=== PATIENT | male | born 1965 | race American Indian/Alaskan Native ===

== ENCOUNTER 2020-09-19 18:16 | Emergency (ER) | payer SELFPAY ==
[2020-09-19 18:31] VITALS: BP 138/93
[2020-09-19] MEDS ORDERED: oxyCODONE /ACETAMINOPHEN 5-325MG TAB PO PRN (18:36)
--- NOTE | 2020-09-19 18:37 | Event Note ---
ED Screening Note Date of service: 09/19/20 Time: 18:36 ED Screening Note: Pleasant 85-year-old male presents the emergency department chief complaint of right posterior ankle pain and swelling over the past day. He reports chronic knee pain but ankle pain is new. He is concerned he may have a clot. He denies any specific injuries. Pain is 9 of 10 severity. This initial assessment/diagnostic orders/clinical plan/treatment(s) is/are subject to change based on patients health status, clinical progression and re- assessment by fellow clinical providers in the ED. Further treatment and workup at subsequent clinical providers discretion. Patient/guardian urged not to elope from the ED as their condition may be serious if not clinically assessed and managed. Initial orders include: Right knee x-ray, right ankle x-ray, venous Doppler to rule out DVT.
[2020-09-19] MEDS ORDERED: ONDANSETRON 4 MG ODT TAB PO ONE (19:31)
[2020-09-19] MEDS ORDERED: IBUPROFEN 600 MG TAB PO ONE (19:31)
--- NOTE | 2020-09-19 19:48 | XRay Report ---
RIGHT KNEE 3 VIEWS INDICATION / CLINICAL INFORMATION: Right knee pain and swelling. COMPARISON: None available. FINDINGS: BONES and JOINT(S): No acute fracture or subluxation. There is mild tricompartmental osteoarthritis. A small joint effusion is present. SOFT TISSUES: No acute abnormality. There is mild popliteal atherosclerosis. ADDITIONAL FINDINGS: None. IMPRESSION: 1. No acute findings. 2. Mild osteoarthritis with additional findings as above. Signer Name: Brandan Masters MD Signed: 09/19/2020 7:44 PM Workstation Name: [id number]
--- NOTE | 2020-09-19 19:49 | XRay Report ---
RIGHT ANKLE 4 VIEWS INDICATION / CLINICAL INFORMATION: Right ankle pain and swelling. COMPARISON: None available. FINDINGS: BONES and JOINT(S): No acute fracture or subluxation. No significant arthritis. SOFT TISSUES: Mild edema is noted anteriorly and laterally. ADDITIONAL FINDINGS: None. IMPRESSION: Mild right ankle edema without an acute osseous abnormality. Signer Name: Brandan Masters MD Signed: 09/19/2020 7:44 PM Workstation Name: [id number]
--- NOTE | 2020-09-19 20:08 | Emergency Department Report ---
ED Extremity Problem HPI - General Chief complaint: Extremity Injury, Lower Stated complaint: R ANKLE PAIN Source: patient Mode of arrival: Ambulatory Limitations: No Limitations - History of Present Illness Initial comments: Patient is a 55-year-old -[place] male with no past medical history except chronic osteoarthritis who presents to the ED with complaint of acute o nset persistent nontraumatic right ankle pain and swelling that radiates to the posterior right lower leg with worsening right Achilles tendon pain for the last 2 days worse in the last 12 hours. Patient states that he is always on his feet at work and that about 6 hours ago the pain got worse and he decided come to the ED for evaluation. Patient denies dizziness, syncope, fall, heavy lifting, t raumatic injury, numbness and tingling or weakness of lower extremities bilaterally, headache, chest pain, shortness of breath, fever, chills, nausea and vomiting, back pain or hip pain and right knee pain. MD Complaint: extremity pain (Right ankle and lower leg pain), extremity swelling (Right ankle swelling and pain), joint paint (Right ankle pain) -: days(s) (2) Location: lower extremity (Posterior right Achilles tendon pain and lower leg pain; right ankle pain and swelling), other (Right ankle pain and swelling) History of Same: No -: Yes arthralgia (Right ankle pain and swelling) Radiation: proximal Severity scale (0 -10): 8 Quality: aching, sharp Consistency: constant Improves with: nothing Worsens with: weight bearing, walking, exertion, palpation Associated Symptoms: denies other symptoms, arthralgias (Right ankle pain and swelling). denies: chest pain, shortness of breath, fever, myalgias, rash, other - Related Data Previous Rx's Medication Instructions Recorded Last Taken Type HYDROcodone/APAP 5-325 [[place] 1 each PO Q6HR PRN #12 tablet 09/19/20 Unknown Rx 5/325] Ibuprofen [Motrin] 800 mg PO Q8HR PRN #30 tablet 09/19/20 Unknown Rx predniSONE [Deltasone] 60 mg PO QDAY #15 tab 09/19/20 Unknown Rx Allergies Allergy/AdvReac Type Severity Reaction Status Date / Time No Known Allergies Allergy Unverified 09/19/20 18:25 ED Review of Systems ROS: Stated complaint: R ANKLE PAIN Other details as noted in HPI Constitutional: denies: chills, fever Eyes: denies: eye pain, eye discharge, vision change ENT: denies: ear pain, throat pain Respiratory: denies: cough, shortness of breath, wheezing Cardiovascular: denies: chest pain, palpitations Endocrine: no symptoms reported Gastrointestinal: denies: abdominal pain, nausea, diarrhea Genitourinary: denies: urgency, dysuria Musculoskeletal: joint swelling (Right ankle swelling with pain), arthralgia (Right ankle pain and swelling; posterior right Achilles tendon and lower leg pain). denies: back pain Skin: denies: rash, lesions Neurological: denies: headache, weakness, paresthesias Psychiatric: denies: anxiety, depression Hematological/Lymphatic: denies: easy bleeding, easy bruising ED Past Medical Hx - Past Medical History Previous Medical History?: Yes Hx Arthritis: Yes (Chronic right knee pain) Additional medical history: Knee injury/pain - Surgical History Past Surgical History?: No - Social History Smoking Status: Current Every Day Smoker Substance Use Type: Alcohol - Medications Home Medications: Home Medications Medication Instructions Recorded Confirmed Last Taken Type HYDROcodone/APAP 5-325 [[place] 1 each PO Q6HR PRN #12 tablet 09/19/20 Unknown Rx 5/325] Ibuprofen [Motrin] 800 mg PO Q8HR PRN #30 tablet 09/19/20 Unknown Rx predniSONE [Deltasone] 60 mg PO QDAY #15 tab 09/19/20 Unknown Rx ED Physical Exam - General Limitations: No Limitations General appearance: alert, in no apparent distress - Head Head exam: Present: atraumatic, normocephalic, normal inspection - Eye Eye exam: Present: normal appearance, PERRL, EOMI Pupils: Present: normal accommodation - ENT ENT exam: Present: normal exam, normal orophraynx, mucous membranes moist, TM's normal bilaterally, normal external ear exam - Neck Neck exam: Present: normal inspection, full ROM - Respiratory Respiratory exam: Present: normal lung sounds bilaterally. Absent: respiratory distress, wheezes, rales, rhonchi, stridor, chest wall tenderness, accessory muscle use, decreased breath sounds - Cardiovascular Cardiovascular Exam: Present: regular rate, normal rhythm, normal heart sounds. Absent: systolic murmur, diastolic murmur, rubs, gallop - GI/Abdominal GI/Abdominal exam: Present: soft, normal bowel sounds. Absent: tenderness, guarding, rebound, hyperactive bowel sounds, hypoactive bowel sounds, organomegaly, mass - Extremities Exam Extremities exam: Present: normal inspection, tenderness (Palpable severe right ankle and right Achilles tendon tenderness with mild swelling of the right ankle), normal capillary refill, joint swelling (Swollen right ankle joint). Absent: full ROM (Limited range of motion of right ankle due to severe pain), pedal edema, calf tenderness - Back Exam Back exam: Present: normal inspection, full ROM. Absent: tenderness, CVA tenderness (R), CVA tenderness (L), muscle spasm, vertebral tenderness - Neurological Exam Neurological exam: Present: alert, oriented X3, CN II-XII intact, reflexes normal, other (Gait not tested due to severe right ankle pain) - Psychiatric Psychiatric exam: Present: normal affect, normal mood, anxious - Skin Skin exam: Present: warm, dry, intact, normal color. Absent: rash ED Course Vital Signs 09/19/20 18:29 Temperature 98.8 F Pulse Rate 77 Respiratory 20 Rate Blood Pressure 138/93 O2 Sat by Pulse 96 Oximetry ED Medical Decision Making - Radiology Data Radiology results: report reviewed, image reviewed [facility] [address] [place] [address] XRay Report Signed Patient: REYMUNDO BUSTAMANTE JR MR#: [id number] : 1965 Acct:[id number] Age/Sex: 55 / M ADM Date: 09/19/20 Loc: ED Attending Dr: Ordering Physician: JERMAINE ANG Date of Service: 09/19/20 Procedure(s): XR ankle 3+V RT Accession Number(s): [id number] cc: JERMAINE ANG Fluoro Time In Minutes: RIGHT ANKLE 4 VIEWS INDICATION / CLINICAL INFORMATION: Right ankle pain and swelling. COMPARISON: None available. FINDINGS: BONES and JOINT(S): No acute fracture or subluxation. No significant arthritis. SOFT TISSUES: Mild edema is noted anteriorly and laterally. ADDITIONAL FINDINGS: None. IMPRESSION: Mild right ankle edema without an acute osseous abnormality. Signer Name: Brandan Masters MD Signed: 09/19/2020 7:44 PM Workstation Name: [id number] Transcribed By: MN Dictated By: Brandan Masters MD Electronically Authenticated By: Brandan Masters MD Signed Date/Time: 09/19/201943 DD/ 43 TD/TT: [facility] [address] [place] [address] XRay Report Signed Patient: REYMUNDO BUSTAMANTE JR MR#: [id number] : 1965 Acct:[id number] Age/Sex: 55 / M ADM Date: 09/19/20 Loc: ED Attending Dr: Ordering Physician: JERMAINE ANG Date of Service: 09/19/20 Procedure(s): XR knee 4+V RT Accession Number(s): [id number] cc: JERMAINE ANG Fluoro Time In Minutes: RIGHT KNEE 3 VIEWS INDICATION / CLINICAL INFORMATION: Right knee pain and swelling. COMPARISON: None available. FINDINGS: BONES and JOINT(S): No acute fracture or subluxation. There is mild tricompartmental osteoarthritis. A small joint effusion is present. SOFT TISSUES: No acute abnormality. There is mild popliteal atherosclerosis. ADDITIONAL FINDINGS: None. IMPRESSION: 1. No acute findings. 2. Mild osteoarthritis with additional findings as above. Signer Name: Brandan Masters MD Signed: 09/19/2020 7:44 PM Workstation Name: [id number] Transcribed By: JOSE MARTIN Dictated By: Brandan Masters MD Electronically Authenticated By: Brandan Masters MD Signed Date/Time: 09/19/201943 DD/ 41 TD/TT: Print Cancel - Medical Decision Making This is a 55-year-old -[place] male with no past medical history except chronic osteoarthritis who presents to the ED with complaint of acute onset persistent nontraumatic right ankle pain and swelling that radiates to the posterior right lower leg with worsening right Achilles tendon pain for the last 2 days worse in the last 12 hours. Patient states that he is always on his feet at work and that about 6 hours ago the pain got worse and he decided come to the ED for evaluation. In the ED, patient is alert and oriented x4 and is not in distress. Patient is hemodynamically stable. Patient was treated for pain in the ED and right knee x-ray showed no acute fractures or subluxation but mild degenerative joint disease. Right ankle x-ray showed no obvious fracture or subluxations but soft tissue swelling. There is however an evulsion fracture on the right medial malleolus on the distal tibia at the ankle joint, suspected to either be subacute or chronic. The patient right ankle was splinted with posterior splint and patient given crutches to aid in ambulation. On reevaluation, patient's pain is well controlled medications. Patient will discharge home on pain medications and given referral to the orthopedic surgeon Dr. Mayorga for follow-up. Patient was advised to contact Dr. Mayorga's office first thing in the morning on Monday, September 21, 2020 to schedule a follow-up appointment for further evaluation. Patient was advised return to the ED immediately if symptoms get worse. - Differential Diagnosis Ankle fracture; Achilles tendonitis; Osteoarthritis; Muscle strain; Gout Critical care attestation.: If time is entered above; I have spent that time in minutes in the direct care of this critically ill patient, excluding procedure time. ED Disposition Clinical Impression: Achilles tendinitis of right lower extremity, Chronic osteoarthritis Closed avulsion fracture of right ankle Qualifiers: Encounter type: initial encounter Qualified Code(s): S82.891A - Other fracture of right lower leg, initial encounter for closed fracture Muscle strain of right lower extremity Qualifiers: Encounter type: initial encounter Qualified Code(s): S86.911A - Strain of unspecified muscle(s) and tendon(s) at lower leg level, right leg, initial encounter Disposition: - TO HOME OR SELFCARE Is pt being admited?: No Does the pt Need Aspirin: No Condition: Stable Instructions: Muscle Strain, [id number], Arthritis, [id number], Ankle Fracture, [id number], Tendinitis, [id number], Achilles Tendinitis Rehab- [facility] Additional Instructions: Right ankle x-ray showed soft tissue swelling with no obvious acute fracture. There is however an evulsion fracture on the medial distal tibia suspected to be chronic. Right knee x-ray showed degenerative joint disease consistent with chronic osteoarthritis. Therefore take medications with food, drink plenty of fluids and follow-up with the orthopedic surgeon on-call Dr. Mayorga for further evaluation. Contact Dr. Mayorga's office first thing in the morning on Monday September 21, 2020 to schedule a follow-up appointment. Otherwise follow-up with your primary care physician in 5 to 7 days for reevaluation or return to the ED immediately if symptoms get worse. Prescriptions: predniSONE [Deltasone] 60 mg PO QDAY #15 tab Ibuprofen [Motrin] 800 mg PO Q8HR PRN #30 tablet PRN Reason: Pain , Severe (7-10) HYDROcodone/APAP 5-325 [[place] 5/325] 1 each PO Q6HR PRN #12 tablet PRN Reason: Pain Referrals: RONEY MAYORGA MD [Staff Physician] - 3-5 Days Forms: Work/School Release Form(ED) Time of Disposition: 20:18 Print Language: CITIZEN OF [place]
== END 2020-09-19 20:30 | disposition home or self-care (01) ==
LOC: ED 18:16
DX: S82.891A Other fracture of right lower leg, initial encounter for closed fracture (principal); S86.911A Strain of unspecified muscle(s) and tendon(s) at lower leg level, right leg, initial encounter; M76.61 Achilles tendinitis, right leg; F17.200 Nicotine dependence, unspecified, uncomplicated; M19.90 Unspecified osteoarthritis, unspecified site; Z79.899 Other long term (current) drug therapy; X58.XXXA Exposure to other specified factors, initial encounter; Y93.89 Activity, other specified; Y92.89 Other specified places as the place of occurrence of the external cause; Y99.0 Civilian activity done for income or pay